=== PATIENT | male | born 1965 | race Caucasian/White ===

== ENCOUNTER 2021-11-20 14:26 | Emergency (ER) | payer OTHER ==
[~2021-11-20] VITALS: Ht 154.9 cm; Wt 125.0 kg
[2021-11-20 14:42] VITALS: BP 137/96; TEMP 98.4
[2021-11-20] MEDS ORDERED: AMOXICILLIN 8751 TAB PO (15:29)
[2021-11-20 15:46] VITALS: PULSE 81
== END 2021-11-20 15:53 | disposition home or self-care (01) ==
LOC: COL.ER 14:26
DX: S60.552A Superficial foreign body of left hand, initial encounter (principal); I10 Essential (primary) hypertension; E11.9 Type 2 diabetes mellitus without complications; W45.8XXA Other foreign body or object entering through skin, initial encounter